=== PATIENT | female | born 1995 | race African-American/Black ===

== ENCOUNTER 2020-09-20 20:05 | Emergency (ER) | payer OTHER ==
[~2020-09-20] VITALS: Ht 162.6 cm; Wt 61.2 kg
[2020-09-20 20:06] VITALS: BP 125/67
== END 2020-09-21 00:38 | disposition left against medical advice (07) ==
LOC: ER 20:05
DX: T19.2XXA Foreign body in vulva and vagina, initial encounter (principal); X58.XXXA Exposure to other specified factors, initial encounter; Y93.89 Activity, other specified; Y92.89 Other specified places as the place of occurrence of the external cause; Y99.8 Other external cause status
CPT/HCPCS: 72170